=== PATIENT | female | born 1980 | race Caucasian/White ===

== ENCOUNTER 2017-05-18 21:02 | Emergency (ER) | payer OTHER ==
[~2017-05-18] VITALS: Ht 157.5 cm; Wt 54.4 kg
[2017-05-18 21:29] VITALS: BP 109/66
== END 2017-05-18 21:52 | disposition home or self-care (01) ==
LOC: ER 21:06
DX: G43.909 Migraine, unspecified, not intractable, without status migrainosus (principal); H66.91 Otitis media, unspecified, right ear
CPT/HCPCS: A4606; Z7610

== ENCOUNTER 2020-09-03 17:40 | Emergency (ER) | payer MEDICAID, OTHER ==
[~2020-09-03] VITALS: Ht 157.5 cm; Wt 59.0 kg
--- NOTE | 2020-09-03 17:56 | NUR ---
BIBS FROM HOME WITH SONE. TO ER BED 6. AAOX4. NOT IN RESP DISTRESS,BREATHING EVEN AND UNLABORED. AMBULATORY. CAME IF FOR CHEST PRESSURE, PALPITATION AND NAUSEA. PT REPORTS THAT SHE FELT THE WORSY NAUSEA SHE EVER FELT CAUSING HER TO HAVE CHEST PRESSURE, PALPITATION AND SOB. NO SON UPON ASSESSMENT. CHEST PRESSURE AND PALPITATION IS GETTING BETTER PER PT. MD WAS AT THE BEDSIDE FOR EVAL. ORDERS RECEIVED, NOTED AND CARRIED OUT. IV LINE NOT NEEDED PER MD.
[2020-09-03 18:36] LABS: BASOPHILS % (AUTO) 0.7 % (0.0-2.0); EOSINOPHILS % (AUTO) 0.9 % (0.0-6.0); HEMATOCRIT 37 % (33-45); HEMOGLOBIN 12.2 g/dL (11.5-14.8); LYMPHOCYTES # (AUTO) 1.8 /CMM (0.8-4.8); LYMPHOCYTES % (AUTO) 31.9 % (20.0-44.0); MEAN CORPUSCULAR HGB CONC 34 g/dl (31.0-36.0); MEAN CORPUSCULAR VOLUME 87 fL (82-100); MONOCYTES # (AUTO) 0.3 /CMM (0.1-1.30); MONOCYTES % (AUTO) 5.8 % (2.0-12.0); NEUTROPHILS # (AUTO) 3.4 /CMM (1.8-8.9); NEUTROPHILS % (AUTO) 60.7 % (43.0-81.0); PLATELET COUNT (AUTO) 257 /CMM (150-450); RED BLOOD CELL COUNT(AUTO) 4.21 MIL/uL (4.0-5.2); WHITE BLOOD COUNT (AUTO) 5.5 K/uL (4.3-11.0)
[2020-09-03 18:52] LABS: ALANINE AMINOTRANSFERASE 17 U/L (12-78); ALKALINE PHOSPHATASE 35 U/L (46-116); ASPARTATE AMINOTRANSFERASE 17 U/L (15-37); BILIRUBIN,DIRECT 0.1 mg/dL (0.0-0.2); BILIRUBIN,TOTAL 0.3 mg/dL (0.2-1.0); CALCIUM, SERUM 9.3 mg/dL (8.5-10.1); CARBON DIOXIDE 28 mmol/L (21-32); CHLORIDE 104 mmol/L (98-107); CREATININE 0.9 mg/dL (0.6-1.3); GLUCOSE 108 mg/dL (74-106); POTASSIUM 3.5 mmol/L (3.5-5.1); SODIUM SERUM 140 mmol/L (136-145); TOTAL PROTEIN, SERUM 7.3 g/dL (6.4-8.2); UREA NITROGEN, BLOOD 5 mg/dL (7-18)
[2020-09-03] MEDS ORDERED: LORA-259 PO (19:42)
[2020-09-03] MEDS ORDERED: LORA10TA7 PO (19:42)
[2020-09-03] MEDS ORDERED: [UNRECOGNIZED DRUG - CODE] NS (19:44)
--- NOTE | 2020-09-03 19:52 | NUR ---
Patient discharged to home in stable condition. Written and verbal after care instructions given. Patient verbalizes understanding of instruction. Pt ambulated out of ED. VSS.
[2020-09-03 19:53] VITALS: BP 131/75
== END 2020-09-03 19:53 | disposition home or self-care (01) ==
LOC: ER 17:42
DX: R07.89 Other chest pain (principal); J32.9 Chronic sinusitis, unspecified; Z79.899 Other long term (current) drug therapy
CPT/HCPCS: 36415; 71045-TC; 80048-TC; 80076-TC; 84484-TC; 85025-TC

== ENCOUNTER 2021-01-09 17:55 | Emergency (ER) | payer MEDICAID ==
[~2021-01-09] VITALS: Ht 157.5 cm; Wt 61.2 kg
[~2021-01-09 17:55] MED LIST: LORA-259 PO; LORA10TA7 PO; [UNRECOGNIZED DRUG - CODE] NS
--- NOTE | 2021-01-09 18:12 | NUR ---
To ER bed 3, C/O throat tightness, "feeling faint" x 1 hour. nausea and vomiting x 2 months, aaox4, breathing even and non labored, attached to monitor
--- NOTE | 2021-01-09 18:34 | NUR ---
URINE COLLECTED AND SENT TO LAB
--- NOTE | 2021-01-09 18:43 | NUR ---
D[facility] AT BEDSIDE
--- NOTE | 2021-01-09 18:45 | NUR ---
LAB AT BEDSIDE
[2021-01-09 19:10] LABS: BASOPHILS % (AUTO) 0.9 % (0.0-2.0); EOSINOPHILS % (AUTO) 0.2 % (0.0-6.0); HEMATOCRIT 37 % (33-45); HEMOGLOBIN 12.3 g/dL (11.5-14.8); LYMPHOCYTES # (AUTO) 1.5 K/uL (0.8-4.8); LYMPHOCYTES % (AUTO) 28.2 % (20.0-44.0); MEAN CORPUSCULAR HGB CONC 34 g/dl (31.0-36.0); MEAN CORPUSCULAR VOLUME 87 fL (82-100); MONOCYTES # (AUTO) 0.3 K/uL (0.1-1.30); NEUTROPHILS # (AUTO) 3.5 K/uL (1.8-8.9); NEUTROPHILS % (AUTO) 64.7 % (43.0-81.0); PLATELET COUNT (AUTO) 274 K/uL (150-450); RED BLOOD CELL COUNT(AUTO) 4.23 MIL/uL (4.0-5.2); WHITE BLOOD COUNT (AUTO) 5.5 K/uL (4.3-11.0)
[2021-01-09 19:25] LABS: CALCIUM, SERUM 8.1 mg/dL (8.5-10.1); CREATININE 0.9 mg/dL (0.6-1.3); POTASSIUM 3.4 mmol/L (3.5-5.1)
[2021-01-09 19:29] LABS: ALBUMIN 4.1 g/dL (3.4-5.0); BILIRUBIN,DIRECT 0.1 mg/dL (0.0-0.2); BILIRUBIN,TOTAL 0.4 mg/dL (0.2-1.0); TOTAL PROTEIN, SERUM 7.5 g/dL (6.4-8.2)
[2021-01-09] MEDS ORDERED: MAG HYDROX/AL HYDROX/SIMETH 30 ML UDC ONE (19:29)
[2021-01-09] MEDS ORDERED: LIDOCAINE VISCOUS 2% UD 15 ML UDC ONE (19:29)
[2021-01-09] MEDS ORDERED: MAG HYDROX/AL HYDROX/SIMETH 30 ML UDC PO ONE (19:30)
[2021-01-09] MEDS ORDERED: LIDOCAINE VISCOUS 2% UD 15 ML UDC MM ONE (19:30)
--- NOTE | 2021-01-09 19:54 | NUR ---
Patient discharged to home in stable condition. Written and verbal after care instructions given. Patient verbalizes understanding of instruction. copies of labs and xray included with discharge instructions.
[2021-01-09 19:56] VITALS: BP 112/71
== END 2021-01-09 19:56 | disposition home or self-care (01) ==
LOC: ER 18:00
DX: K21.9 Gastro-esophageal reflux disease without esophagitis (principal); Z79.899 Other long term (current) drug therapy
CPT/HCPCS: 36415; 71045-TC; 80048-TC; 80076-TC; 83690-TC; 84702-TC; 85025-TC

== ENCOUNTER 2021-01-29 21:17 | Emergency (ER) | payer MEDICAID ==
[~2021-01-29] VITALS: Ht 157.5 cm; Wt 63.5 kg
--- NOTE | 2021-01-29 21:50 | NUR ---
PT AAOX4. AMBULATORY WITH STEADY GAIT, BIBSELF C/O LOWER BACK PAIN RADAITING TO UPPER NECK. PLACED IN BED 1 ON MONITOR AND PULSE OX.
--- NOTE | 2021-01-29 22:54 | NUR ---
BROUGHT TO CT AND BACK
[2021-01-30 00:14] VITALS: BP 132/72
--- NOTE | 2021-01-30 00:14 | NUR ---
Patient discharged to home in stable condition. Written and verbal after care instructions given. Patient verbalizes understanding of instruction.
== END 2021-01-30 00:15 | disposition home or self-care (01) ==
LOC: ER 21:22
DX: M54.32 Sciatica, left side (principal); M54.31 Sciatica, right side; K21.9 Gastro-esophageal reflux disease without esophagitis; Z79.899 Other long term (current) drug therapy
CPT/HCPCS: 72131-TC

== ENCOUNTER 2021-08-15 15:27 | Emergency (ER) | payer MEDICAID ==
[~2021-08-15] VITALS: Ht 157.5 cm; Wt 68.0 kg
--- NOTE | 2021-08-15 16:00 | NUR ---
Recieved pt 41 yrs femal walking in c/o pain on right leg and swallen on calf swin warm and dry to touch seen and examin by DR. VU ORDER WAS GIVEN
--- NOTE | 2021-08-15 16:25 | NUR ---
US ON RT LEG DONE AT BED SIDE skin warm and dry to touch
[2021-08-15] MEDS ORDERED: ASPIRIN 325 MG TABLET PO ONE (16:30)
--- NOTE | 2021-08-15 17:25 | NUR ---
D/CINSTRACTION GIVEN TO PT FULLY AND VERBLIZED UNDERSTOOD /C HOME NO PAIN ON right leg
[2021-08-15 17:33] VITALS: BP 106/74
== END 2021-08-15 17:34 | disposition home or self-care (01) ==
LOC: ER 15:35
DX: R22.41 Localized swelling, mass and lump, right lower limb (principal); Z87.19 Personal history of other diseases of the digestive system; Z79.899 Other long term (current) drug therapy
CPT/HCPCS: 93971-TC

== ENCOUNTER 2021-10-12 11:04 | Emergency (ER) | payer MEDICAID ==
[~2021-10-12] VITALS: Ht 165.1 cm; Wt 70.4 kg
--- NOTE | 2021-10-12 11:11 | NUR ---
BIBS FOR C/O LEFT ARM AND LEFT SIDED FACE NUMBNESS, RIGHT LEG NUMBNESS, NAUSEA STARTED 30 MIN AGO. PER PATIENT SHE EXPERIENCED CP 30 MIN AGO. PT ATTACHED TO MONITOR. DR ONTIVEROS AT BEDSIDE
[2021-10-12] MEDS ORDERED: PANT40TA49 PO (11:15)
[2021-10-12] MEDS ORDERED: IV NS 0.9% 250 ML IV ONE (11:17)
[2021-10-12] MEDS ORDERED: IOHEXOL-350 100 ML VIAL IV ONE (11:17)
[2021-10-12 11:26] LABS: BASOPHILS % (AUTO) 0.7 % (0.0-2.0); EOSINOPHILS % (AUTO) 1.7 % (0.0-6.0); HEMATOCRIT 40 % (33-45); HEMOGLOBIN 13.5 g/dL (11.5-14.8); LYMPHOCYTES # (AUTO) 1.8 K/uL (0.8-4.8); LYMPHOCYTES % (AUTO) 43.4 % (20.0-44.0); MEAN CORPUSCULAR HGB CONC 34 g/dl (31.0-36.0); MEAN CORPUSCULAR VOLUME 86 fL (82-100); MONOCYTES # (AUTO) 0.3 K/uL (0.1-1.30); MONOCYTES % (AUTO) 6.4 % (2.0-12.0); NEUTROPHILS % (AUTO) 47.8 % (43.0-81.0); PLATELET COUNT (AUTO) 217 K/uL (150-450); RED BLOOD CELL COUNT(AUTO) 4.59 MIL/uL (4.0-5.2); WHITE BLOOD COUNT (AUTO) 4.1 K/uL (4.3-11.0)
[2021-10-12] MEDS ORDERED: IV NS 0.9% 1,000 ML BAG IV ONE (11:30)
[2021-10-12] MEDS ORDERED: ONDANSETRON HCL/PF 4 MG/2 ML VIAL ONE (11:30)
[2021-10-12] MEDS ORDERED: LORAZEPAM INJ 2 MG/ML VIAL IV ONE (11:30)
[2021-10-12 11:37] LABS: CALCIUM, SERUM 9.3 mg/dL (8.5-10.1); CARBON DIOXIDE 28 mmol/L (21-32); CHLORIDE 99 mmol/L (98-107); GLUCOSE 112 mg/dL (74-106); POTASSIUM 3.3 mmol/L (3.5-5.1); SODIUM SERUM 136 mmol/L (136-145); UREA NITROGEN, BLOOD 14 mg/dL (7-18)
[2021-10-12] MEDS ORDERED: ONDANSETRON HCL/PF - ER 4 MG/2 ML VIAL IV ONE (12:00)
[2021-10-12] MEDS ORDERED: LORAZEPAM INJ 2 MG/ML VIAL ONE (12:05)
[2021-10-12] MEDS ORDERED: IBUP-1955 PO (12:59)
[2021-10-12] MEDS ORDERED: CYCL5TAB PO (12:59)
[2021-10-12] MEDS ORDERED: KETOROLAC TROMETHAMINE 15 MG/ML VIAL ONE (13:00)
[2021-10-12] MEDS ORDERED: ACETAMINOPHEN 325 MG TABLET ONE (13:00)
[2021-10-12] MEDS ORDERED: KETOROLAC TROMETHAMINE INJ 30 MG/ML VIAL IV ONE (13:00)
[2021-10-12] MEDS ORDERED: ACETAMINOPHEN 325 MG TABLET PO ONE (13:00)
--- NOTE | 2021-10-12 13:40 | NUR ---
IV removed. Catheter intact and site benign. Pressure and 4x4 applied to site. No bleeding noted.Patient discharged to home in stable condition. Written and verbal after care instructions given. Patient verbalizes understanding of instruction.
[2021-10-12 13:41] VITALS: BP 141/67
== END 2021-10-12 13:42 | disposition home or self-care (01) ==
LOC: ER 11:11
DX: M54.41 Lumbago with sciatica, right side (principal); R20.2 Paresthesia of skin; R41.9 Unspecified symptoms and signs involving cognitive functions and awareness; Z87.19 Personal history of other diseases of the digestive system; Z79.899 Other long term (current) drug therapy
CPT/HCPCS: 36415; 70450; 70496; 70498; 71045; 80048; 82962; 84484; 85025; 85730; 93005; 96361; 96374; 96375; 99285; J1885; J2060; J2405; J7030 ×2; J7050; Q9967

== ENCOUNTER 2021-10-15 15:02 | Emergency (ER) | payer MEDICAID ==
[~2021-10-15] VITALS: Ht 157.5 cm; Wt 63.5 kg
[~2021-10-15 15:02] MED LIST changes: +CYCL5TAB PO; +IBUP-1955 PO; -LORA-259 PO; +PANT40TA49 PO; -[UNRECOGNIZED DRUG - CODE] NS
[2021-10-15] MEDS: MORPHINE SULFATE INJ 2 MG/ML DISP.SYRIN IV ONE (17:30)
[2021-10-15] MEDS: IV NS 0.9% 1,000 ML BAG IV ONE (17:30)
[2021-10-15] MEDS: ONDANSETRON HCL/PF 4 MG/2 ML VIAL IVP ONE (17:30)
[2021-10-15] MEDS ORDERED: ONDANSETRON HCL/PF 4 MG/2 ML VIAL ONE (17:51)
[2021-10-15] MEDS ORDERED: MORPHINE SULFATE INJ 2 MG/ML DISP.SYRIN ONE (17:52)
[2021-10-15 18:47] LABS: CALCIUM, SERUM 9.3 mg/dL (8.5-10.1); CREATININE 0.8 mg/dL (0.6-1.3); POTASSIUM 3.7 mmol/L (3.5-5.1)
[2021-10-15 18:54] LABS: ALBUMIN 4.6 g/dL (3.4-5.0); BILIRUBIN,DIRECT 0.1 mg/dL (0.0-0.2); BILIRUBIN,TOTAL 0.5 mg/dL (0.2-1.0); TOTAL PROTEIN, SERUM 8.1 g/dL (6.4-8.2)
--- NOTE | 2021-10-15 19:37 | NUR ---
BIBS C/O LOWER BACK PAIN RADIATING TO R LEG X3 DAYS WELL ABD PAIN. HX OF SCIATICA. PT AWAKE AND ALERT X4 BREATHING EVEN AND UNLABORED. ALL V/S WNL.
[2021-10-15 19:41] LABS: BILIRUBIN,URINE NEGATIVE (NEGATIVE); COLOR,URINE YELLOW (YELLOW); LEUKOCYTE ESTERASE ,URINE NEGATIVE (NEGATIVE); NITRITE, URINE NEGATIVE (NEGATIVE); PROTEIN,URINE NEGATIVE (NEGATIVE); UGLUCOSE NEGATIVE (NEGATIVE); UROBILINOGEN,URINE 0.2 EU/dL (0.2)
[2021-10-15 19:54] LABS: EOSINOPHILS % (AUTO) 0.8 % (0.0-6.0); HEMATOCRIT 39 % (33-45); HEMOGLOBIN 13.4 g/dL (11.5-14.8); LYMPHOCYTES % (AUTO) 44.6 % (20.0-44.0); MEAN CORPUSCULAR HGB CONC 35 g/dl (31.0-36.0); MEAN CORPUSCULAR VOLUME 86 fL (82-100); MONOCYTES # (AUTO) 0.2 K/uL (0.1-1.30); MONOCYTES % (AUTO) 5.5 % (2.0-12.0); NEUTROPHILS # (AUTO) 2.2 K/uL (1.8-8.9); NEUTROPHILS % (AUTO) 48.1 % (43.0-81.0); PLATELET COUNT (AUTO) 235 K/uL (150-450); RED BLOOD CELL COUNT(AUTO) 4.49 MIL/uL (4.0-5.2); WHITE BLOOD COUNT (AUTO) 4.5 K/uL (4.3-11.0)
--- NOTE | 2021-10-15 20:10 | NUR ---
PT TRANSPORTED TO CT VIA [facility]
[2021-10-15] MEDS ORDERED: HYDR28.316 TP (22:03)
--- NOTE | 2021-10-15 22:08 | NUR ---
Patient discharged to home in stable condition. Written and verbal after care instructions given. Patient verbalizes understanding of instruction.
[2021-10-15 22:13] VITALS: BP 110/75
== END 2021-10-15 22:10 | disposition home or self-care (01) ==
LOC: ER 15:06
DX: M54.41 Lumbago with sciatica, right side (principal); R10.31 Right lower quadrant pain; R11.0 Nausea; Z87.19 Personal history of other diseases of the digestive system; Z79.899 Other long term (current) drug therapy
CPT/HCPCS: 36415; 72131; 74176; 80048; 80076; 81003; 83690; 84703; 85025; 96361; 96374; 96375; 99284; J2270; J2405; J7030

== ENCOUNTER 2021-11-05 18:09 | Emergency (ER) | payer MEDICAID ==
[~2021-11-05] VITALS: Ht 157.5 cm; Wt 63.5 kg
[~2021-11-05 18:09] MED LIST changes: +HYDR28.316 TP
[2021-11-05 18:30] VITALS: BP 128/71
--- NOTE | 2021-11-05 23:01 | NUR ---
Patient discharged to home in stable condition. Written and verbal after care instructions given. Patient verbalizes understanding of instruction.
== END 2021-11-06 00:14 | disposition home or self-care (01) ==
LOC: ER 18:46
DX: M54.30 Sciatica, unspecified side (principal); M54.10 Radiculopathy, site unspecified; K21.9 Gastro-esophageal reflux disease without esophagitis; Z79.899 Other long term (current) drug therapy

== ENCOUNTER 2021-12-08 18:19 | Emergency (ER) | payer MEDICAID ==
[~2021-12-08] VITALS: Ht 157.5 cm; Wt 68.0 kg
[2021-12-08] MEDS ORDERED: ONDANSETRON HCL/PF 4 MG/2 ML VIAL ONE (18:49)
[2021-12-08] MEDS ORDERED: MORPHINE SULFATE INJ 4 MG/ML DISP.SYRIN ONE (18:49)
[2021-12-08] MEDS ORDERED: FAMOTIDINE/PF INJ 20 MG/2 ML VIAL IV ONE ×2 (18:49→19:00)
[2021-12-08 18:51] LABS: BILIRUBIN,URINE NEGATIVE (NEGATIVE); COLOR,URINE YELLOW (YELLOW); LEUKOCYTE ESTERASE ,URINE NEGATIVE (NEGATIVE); NITRITE, URINE NEGATIVE (NEGATIVE); PH,URINE 6.5 (5.0-8.0); PROTEIN,URINE NEGATIVE (NEGATIVE); UGLUCOSE NEGATIVE (NEGATIVE); UROBILINOGEN,URINE 0.2 EU/dL (0.2)
[2021-12-08] MEDS ORDERED: IV NS 0.9% 1,000 ML BAG IV ONE (19:00)
[2021-12-08] MEDS ORDERED: MORPHINE SULFATE INJ 2 MG/ML DISP.SYRIN IV ONE (19:00)
[2021-12-08] MEDS ORDERED: ONDANSETRON HCL/PF 4 MG/2 ML VIAL IVP ONE (19:00)
[2021-12-08 19:15] LABS: CALCIUM, SERUM 8.6 mg/dL (8.5-10.1); CREATININE 0.9 mg/dL (0.6-1.3); POTASSIUM 3.8 mmol/L (3.5-5.1)
[2021-12-08 19:21] LABS: ALBUMIN 3.9 g/dL (3.4-5.0); BILIRUBIN,DIRECT 0.1 mg/dL (0.0-0.2); BILIRUBIN,TOTAL 0.3 mg/dL (0.2-1.0); TOTAL PROTEIN, SERUM 7.4 g/dL (6.4-8.2)
[2021-12-08 19:56] LABS: BASOPHILS % (AUTO) 0.9 % (0.0-2.0); EOSINOPHILS % (AUTO) 1.7 % (0.0-6.0); HEMATOCRIT 37 % (33-45); HEMOGLOBIN 12.7 g/dL (11.5-14.8); LYMPHOCYTES # (AUTO) 1.7 K/uL (0.8-4.8); LYMPHOCYTES % (AUTO) 33.1 % (20.0-44.0); MEAN CORPUSCULAR HGB CONC 35 g/dl (31.0-36.0); MEAN CORPUSCULAR VOLUME 86 fL (82-100); MONOCYTES # (AUTO) 0.3 K/uL (0.1-1.30); MONOCYTES % (AUTO) 6.1 % (2.0-12.0); NEUTROPHILS # (AUTO) 2.9 K/uL (1.8-8.9); NEUTROPHILS % (AUTO) 58.2 % (43.0-81.0); PLATELET COUNT (AUTO) 250 K/uL (150-450); RED BLOOD CELL COUNT(AUTO) 4.27 MIL/uL (4.0-5.2)
[2021-12-08] MEDS ORDERED: LIDOCAINE VISCOUS 2% UD 15 ML UDC MM ONE (20:30)
[2021-12-08] MEDS ORDERED: MAG HYDROX/AL HYDROX/SIMETH 30 ML UDC PO ONE (20:30)
[2021-12-08] MEDS ORDERED: MAG HYDROX/AL HYDROX/SIMETH 30 ML UDC ONE (21:12)
[2021-12-08] MEDS ORDERED: LIDOCAINE VISCOUS 2% UD 15 ML UDC ONE (21:12)
[2021-12-08] MEDS ORDERED: SUCR1TAB31 PO (22:02)
[2021-12-08 22:29] VITALS: BP 124/71
== END 2021-12-08 22:31 | disposition home or self-care (01) ==
LOC: ER 18:23
DX: R10.9 Unspecified abdominal pain (principal); K21.9 Gastro-esophageal reflux disease without esophagitis; Z79.899 Other long term (current) drug therapy; Z20.822 Contact with and (suspected) exposure to COVID-19
CPT/HCPCS: 99285; 74176; 96374; 76705; 71045; 96375; 96361; 87426; 85025; 80048; 83690; 80076; 84703; 81003; 36415; 85730; J2270; J3490; J2405; J7030; C9803

== ENCOUNTER 2022-01-30 13:30 | Emergency (ER) | payer MEDICAID ==
[~2022-01-30] VITALS: Ht 157.5 cm; Wt 63.5 kg
[~2022-01-30 13:30] MED LIST changes: +SUCR1TAB31 PO
--- NOTE | 2022-01-30 13:35 | NUR ---
RECEIVED PT 41YRS FEMALE CAME FROM home c/o genralized weekness cold and clamy respiration spont and easy
--- NOTE | 2022-01-30 13:55 | NUR ---
EKG done at bed side
[2022-01-30 14:03] LABS: BASOPHILS % (AUTO) 0.8 % (0.0-2.0); EOSINOPHILS % (AUTO) 0.6 % (0.0-6.0); HEMATOCRIT 38 % (33-45); HEMOGLOBIN 12.6 g/dL (11.5-14.8); LYMPHOCYTES # (AUTO) 1.5 K/uL (0.8-4.8); LYMPHOCYTES % (AUTO) 29.7 % (20.0-44.0); MEAN CORPUSCULAR HGB CONC 34 g/dl (31.0-36.0); MEAN CORPUSCULAR VOLUME 87 fL (82-100); MONOCYTES # (AUTO) 0.3 K/uL (0.1-1.30); MONOCYTES % (AUTO) 6.7 % (2.0-12.0); NEUTROPHILS # (AUTO) 3.1 K/uL (1.8-8.9); NEUTROPHILS % (AUTO) 62.2 % (43.0-81.0); PLATELET COUNT (AUTO) 235 K/uL (150-450); RED BLOOD CELL COUNT(AUTO) 4.32 MIL/uL (4.0-5.2)
[2022-01-30 14:11] LABS: CALCIUM, SERUM 9.5 mg/dL (8.5-10.1); CARBON DIOXIDE 31 mmol/L (21-32); CHLORIDE 102 mmol/L (98-107); CREATININE 0.9 mg/dL (0.6-1.3); GLUCOSE 101 mg/dL (74-106); POTASSIUM 3.6 mmol/L (3.5-5.1); SODIUM SERUM 139 mmol/L (136-145); UREA NITROGEN, BLOOD 13 mg/dL (7-18)
[2022-01-30 14:17] LABS: ALANINE AMINOTRANSFERASE 43 U/L (12-78); ALBUMIN 4.3 g/dL (3.4-5.0); ALKALINE PHOSPHATASE 41 U/L (46-116); ASPARTATE AMINOTRANSFERASE 29 U/L (15-37); BILIRUBIN,DIRECT 0.1 mg/dL (0.0-0.2); BILIRUBIN,TOTAL 0.4 mg/dL (0.2-1.0); TOTAL PROTEIN, SERUM 8.1 g/dL (6.4-8.2)
--- NOTE | 2022-01-30 14:17 | NUR ---
Blood drow by lab tach at bed side
--- NOTE | 2022-01-30 14:25 | NUR ---
UA SENT TO LAB
--- NOTE | 2022-01-30 14:30 | NUR ---
TO CT scan of head via marissa herr
[2022-01-30 15:07] LABS: BILIRUBIN,URINE NEGATIVE (NEGATIVE); COLOR,URINE YELLOW (YELLOW); LEUKOCYTE ESTERASE ,URINE NEGATIVE (NEGATIVE); NITRITE, URINE NEGATIVE (NEGATIVE); PROTEIN,URINE NEGATIVE (NEGATIVE); UGLUCOSE NEGATIVE (NEGATIVE); UROBILINOGEN,URINE 0.2 EU/dL (0.2)
[2022-01-30 15:33] LABS: ALBUMIN 4.1 g/dL (3.4-5.0); BILIRUBIN,DIRECT 0.1 mg/dL (0.0-0.2); BILIRUBIN,TOTAL 0.3 mg/dL (0.2-1.0); TOTAL PROTEIN, SERUM 7.7 g/dL (6.4-8.2)
--- NOTE | 2022-01-30 15:45 | NUR ---
Patient discharged to home in stable condition. Written and verbal after care instructions given. Patient verbalizes understanding of instruction.
[2022-01-30 15:54] VITALS: BP 113/48
[2022-01-30 15:55] LABS: BACTERIA,URINE None seen /HPF (None Seen); MUCUS,URINE Few /LPF (None Seen); RBC,URINE 21-50 /HPF (0-2); SQUAMOUS EPITHELIAL CELL,UR 0-2 /HPF (None Seen); WBC,URINE 0-2 /HPF (0-3)
== END 2022-01-30 15:55 | disposition home or self-care (01) ==
LOC: ER 13:33
DX: R20.2 Paresthesia of skin (principal); R07.89 Other chest pain; K21.9 Gastro-esophageal reflux disease without esophagitis; Z79.899 Other long term (current) drug therapy
CPT/HCPCS: 36415; 70450-TC; 71045-TC; 80048-TC; 80076-TC; 81001; 84484-TC; 84703-TC; 85025-TC

== ENCOUNTER 2022-02-18 12:49 | Emergency (ER) | payer MEDICAID ==
[~2022-02-18] VITALS: Ht 157.5 cm; Wt 68.0 kg
--- NOTE | 2022-02-18 13:00 | NUR ---
Patient came in to the er c/o on and off palpitation. On room air, breathing evenly and unlabored. Connected to the monitor and pulse ox. Kept comfortable, will continue to monitor accordingly.
[2022-02-18] MEDS ORDERED: PROCHLORPERAZINE EDISYLATE 10 MG/2 ML VIAL ONE (14:47)
[2022-02-18] MEDS ORDERED: diphenhydrAMINE HCL 25 MG CAPSULE ONE (14:48)
[2022-02-18] MEDS ORDERED: diphenhydrAMINE HCL 25 MG CAPSULE PO ONE (15:00)
[2022-02-18] MEDS ORDERED: PROCHLORPERAZINE EDISYLATE 10 MG/2 ML VIAL IVP ONE (15:00)
--- NOTE | 2022-02-18 15:05 | NUR ---
patient came back from ct
[2022-02-18 15:08] LABS: BASOPHILS % (AUTO) 0.5 % (0.0-2.0); EOSINOPHILS % (AUTO) 1.3 % (0.0-6.0); HEMATOCRIT 36 % (33-45); HEMOGLOBIN 12.1 g/dL (11.5-14.8); LYMPHOCYTES # (AUTO) 1.5 K/uL (0.8-4.8); LYMPHOCYTES % (AUTO) 25.5 % (20.0-44.0); MEAN CORPUSCULAR HGB CONC 33 g/dl (31.0-36.0); MEAN CORPUSCULAR VOLUME 86 fL (82-100); MONOCYTES # (AUTO) 0.4 K/uL (0.1-1.30); MONOCYTES % (AUTO) 7.1 % (2.0-12.0); NEUTROPHILS % (AUTO) 65.6 % (43.0-81.0); PLATELET COUNT (AUTO) 202 K/uL (150-450); RED BLOOD CELL COUNT(AUTO) 4.21 MIL/uL (4.0-5.2)
[2022-02-18 15:17] LABS: CALCIUM, SERUM 8.8 mg/dL (8.5-10.1); CARBON DIOXIDE 31 mmol/L (21-32); CHLORIDE 104 mmol/L (98-107); CREATININE 0.8 mg/dL (0.6-1.3); GLUCOSE 99 mg/dL (74-106); POTASSIUM 3.5 mmol/L (3.5-5.1); SODIUM SERUM 139 mmol/L (136-145); UREA NITROGEN, BLOOD 10 mg/dL (7-18)
[2022-02-18 17:22] LABS: BILIRUBIN,URINE NEGATIVE (NEGATIVE); COLOR,URINE YELLOW (YELLOW); LEUKOCYTE ESTERASE ,URINE NEGATIVE (NEGATIVE); NITRITE, URINE NEGATIVE (NEGATIVE); PROTEIN,URINE NEGATIVE (NEGATIVE); UGLUCOSE NEGATIVE (NEGATIVE); UROBILINOGEN,URINE 0.2 EU/dL (0.2)
[2022-02-18 17:32] LABS: BACTERIA,URINE Rare /HPF (None Seen); RBC,URINE 0-2 /HPF (0-2); SQUAMOUS EPITHELIAL CELL,UR Few /HPF (None Seen); WBC,URINE 0-2 /HPF (0-3)
[2022-02-18] MEDS ORDERED: KETO10TA2 PO (19:13)
[2022-02-18] MEDS ORDERED: KETOROLAC TROMETHAMINE 15 MG/ML VIAL ONE (19:19)
[2022-02-18] MEDS ORDERED: KETOROLAC TROMETHAMINE INJ 30 MG/ML VIAL ONE (19:21)
--- NOTE | 2022-02-18 19:29 | NUR ---
Patient discharged to home in stable condition. Written and verbal after care instructions given. Patient verbalizes understanding of instruction. IV removed. Catheter intact and site benign. Pressure and 4x4 applied to site. No bleeding noted.
[2022-02-18 19:30] VITALS: BP 138/90
[2022-02-18] MEDS ORDERED: KETOROLAC TROMETHAMINE INJ 30 MG/ML VIAL IV ONE (19:30)
== END 2022-02-18 19:30 | disposition home or self-care (01) ==
LOC: ER 12:51
DX: R20.2 Paresthesia of skin (principal); M54.2 Cervicalgia; K21.9 Gastro-esophageal reflux disease without esophagitis; F32.A Depression, unspecified; Z79.899 Other long term (current) drug therapy
CPT/HCPCS: 99285; 96374; 72125; 71045; 96375; 93005; 85025; 80048; 84703; 81001; 36415; 84443; 84484; J0780; Q0163; J1885